=== PATIENT | female | born 1995 | race Caucasian/White ===

== ENCOUNTER 2017-10-24 20:01 | Emergency (ER) | payer SELFPAY ==
[~2017-10-24] VITALS: Ht 162.6 cm; Wt 80.5 kg
[~2017-10-24 20:01] MED LIST: 00186-0372-20 IH; NORCO 325 MG-51 TAB PO; PROAIR HFA0.09 MG/AC IH
[2017-10-24 20:10] VITALS: TEMP 98.9
[2017-10-24] MEDS ORDERED: NORCO 325 MG-51 TAB PO (20:36)
[2017-10-24 20:55] VITALS: BP 123/69; PULSE 74
== END 2017-10-24 20:55 | disposition home or self-care (01) ==
LOC: COL.ER 20:01
DX: S43.004A Unspecified dislocation of right shoulder joint, initial encounter (principal); J45.909 Unspecified asthma, uncomplicated; Z87.828 Personal history of other (healed) physical injury and trauma; X50.0XXA Overexertion from strenuous movement or load, initial encounter; Y92.009 Unspecified place in unspecified non-institutional (private) residence as the place of occurrence of the external cause